=== PATIENT | male | born 2000 | race Caucasian/White ===

== ENCOUNTER 2022-03-25 00:34 | Emergency (ER) | payer OTHER ==
[~2022-03-25] VITALS: Ht 167.6 cm; Wt 59.0 kg
[2022-03-25 00:40] VITALS: BP 132/70
--- NOTE | 2022-03-25 00:40 | NUR ---
AMBULATED TO LOBBY
[2022-03-25 00:53] LABS: APPEARANCE,URINE CLEAR (CLEAR); BILIRUBIN,URINE NEGATIVE (NEGATIVE); BLOOD, URINE 1+ (NEGATIVE); COLOR,URINE YELLOW (YELLOW); LEUKOCYTE ESTERASE ,URINE NEGATIVE (NEGATIVE); NITRITE, URINE NEGATIVE (NEGATIVE); UGLUCOSE NEGATIVE (NEGATIVE)
[2022-03-25 01:04] LABS: RBC,URINE 0-5 /HPF (0-5); WBC,URINE 0-5 /HPF (0-5)
--- NOTE | 2022-03-25 01:12 | NUR ---
Patient ambulated to bed 9.
--- NOTE | 2022-03-25 01:26 | NUR ---
Ultrasound at bedside.
--- NOTE | 2022-03-25 01:33 | NUR ---
21 Y.O MALE BIBS FROM HOME, C/O TESTICULAR PAIN x2.5 DAYS. PT REPORTS PAIN STARTS UNDERNEARTH LT TESTICLE AND RADIATES TO LT GROIN. PAIN STARTED DAYS AFTER SEXUAL INTERCOURSE. UNLABORED BREATHING; AMBULATORY; A/OX4, GCS-15. NO FEVER, COUGH, SOB, CP, OR N/V/D. MEDHX- DENIES NKA
--- NOTE | 2022-03-25 02:06 | NUR ---
Dr. Mckeon examining patient.
[2022-03-25] MEDS ORDERED: KETOROLAC 60 MG/2 ML VIAL IM ONE (02:15)
[2022-03-25] MEDS ORDERED: IBUP-2213 PO (02:18)
[2022-03-25 02:54] VITALS: BP 128/63
--- NOTE | 2022-03-25 02:54 | NUR ---
Patient discharged with v/s stable. Written and verbal after care instructions given and explained for Varicocele. Patient alert, oriented and verbalized understanding of instructions. Ambulatory with steady gait. All questions addressed prior to discharge. ID band removed. Patient advised to follow up with PMD. Rx of Ibuprofen given. Patient educated on indication of medication including possible reaction and side effects. Opportunity to ask questions provided and answered.
== END 2022-03-25 02:54 | disposition home or self-care (01) ==
LOC: MED 00:34
DX: I86.1 Scrotal varices (principal); F12.90 Cannabis use, unspecified, uncomplicated; Z79.1 Long term (current) use of non-steroidal anti-inflammatories (NSAID)
CPT/HCPCS: 76870; 81001; 96372; 99284; J1885; Q0092

== ENCOUNTER 2022-06-18 19:10 | Emergency (ER) | payer OTHER ==
[~2022-06-18] VITALS: Ht 170.2 cm; Wt 64.4 kg
[~2022-06-18 19:10] MED LIST: IBUP-2213 PO
[2022-06-18 19:29] VITALS: BP 145/86
--- NOTE | 2022-06-18 21:04 | NUR ---
ANTONIOD EXAMINING PT IN CHAIR
[2022-06-18] MEDS ORDERED: KETOROLAC 30 MG/ML VIAL IM ONE (21:15)
--- NOTE | 2022-06-18 21:19 | NUR ---
PT TAKEN TO CT
--- NOTE | 2022-06-18 21:27 | NUR ---
PT RETURNED FROM CT
[2022-06-18 21:36] LABS: APPEARANCE,URINE CLEAR (CLEAR); BILIRUBIN,URINE NEGATIVE (NEGATIVE); BLOOD, URINE TRACE-I (NEGATIVE); COLOR,URINE YELLOW (YELLOW); LEUKOCYTE ESTERASE ,URINE NEGATIVE (NEGATIVE); NITRITE, URINE NEGATIVE (NEGATIVE); UGLUCOSE NEGATIVE (NEGATIVE)
[2022-06-18 21:50] LABS: OTHER CASTS, URINE None Seen /LPF (None Seen); WBC,URINE 0-5 /HPF (0-5)
[2022-06-18 22:05] LABS: BASOPHILS # (AUTO) 0.1 K/uL (0.00-0.22); BASOPHILS % (AUTO) 1.3 % (0.0-2.0); EOSINOPHILS # (AUTO) 0.1 K/uL (0-0.4); EOSINOPHILS % (AUTO) 1.3 % (0.0-4.0); HEMATOCRIT 45.2 % (36-52); HEMOGLOBIN 15.4 g/dL (12.0-18.0); LYMPHOCYTES # (AUTO) 2.1 K/uL (2.0-11.5); MEAN CORPUSCULAR HEMOGLOBIN 29 pg (27-31); MEAN CORPUSCULAR HGB CONC 34 g/dL (33-37); MEAN CORPUSCULAR VOLUME 85.1 fL (80-94); MONOCYTES # (AUTO) 0.5 K/uL (0.8-1.0); MONOCYTES % (AUTO) 8.4 % (1.7-9.3); PLATELET COUNT (AUTO) 287 K/uL (140-450); RED BLOOD CELL COUNT(AUTO) 5.31 MIL/uL (4.20-6.10); RED CELL DISTRIBUTION WIDTH 13.8 % (11.6-13.7); WHITE BLOOD COUNT (AUTO) 5.7 K/uL (4.5-11.0)
[2022-06-18 22:27] LABS: ALBUMIN 4.2 g/dL (3.4-5.0); ANION GAP 12.5 (8-16); CARBON DIOXIDE 27.5 mmol/L (21-32); CREATININE 0.9 mg/dL (0.6-1.3); TOTAL BILIRUBIN 1.9 mg/dL (0.0-1.0)
[2022-06-18] MEDS ORDERED: BEN10 PO (23:38)
--- NOTE | 2022-06-18 23:41 | NUR ---
Dr. Alfredo explained results and treatment plans.
[2022-06-18 23:49] VITALS: BP 122/71
--- NOTE | 2022-06-18 23:49 | NUR ---
Patient discharged with v/s stable. Written and verbal after care instructions given and explained. Patient alert, oriented and verbalized understanding of instructions. Ambulatory with steady gait. All questions addressed prior to discharge. ID band removed. Patient advised to follow up with PMD. Rx of Bentyl given. Patient educated on indication of medication including possible reaction and side effects. Opportunity to ask questions provided and answered.
== END 2022-06-18 23:49 | disposition home or self-care (01) ==
LOC: MED 19:10
DX: R10.33 Periumbilical pain (principal); Z79.899 Other long term (current) drug therapy
CPT/HCPCS: 36415; 74176; 80053; 81001; 83690; 85025; 96372; 99284; J1885; 81002